=== PATIENT | female | born 1960 | race Caucasian/White ===

== ENCOUNTER 2018-02-08 21:51 | Emergency (ER) | payer SELFPAY ==
[~2018-02-08] VITALS: Ht 162.6 cm; Wt 88.0 kg
[~2018-02-08 21:51] MED LIST: ASPIRIN81 MG PO; HUMULIN R100 UNIT/2; LANTUS 3ML100 UNITS/; LYRICA75 MG PO; ULTRAM 50MG50 MG PO
[2018-02-08] MEDS ORDERED: ONDANSETRON HCL INJ 2 MG/ML VIAL IV ONE (22:30)
[2018-02-08] MEDS ORDERED: KETOROLAC TROMETHAMINE 30 MG/ML VIAL IV ONE (22:30)
[2018-02-08] MEDS ORDERED: PROMETHAZINE HCL (IM) 25 MG/ML VIAL IM ONE (23:15)
[2018-02-08] MEDS ORDERED: SODIUM CHLORIDE 0.9% 1000ML 1,000 ML ONE (23:15)
[2018-02-08] MEDS ORDERED: MORPHINE SULFATE 4 MG/ML SYR IV ONE (23:15)
[2018-02-08] MEDS ORDERED: ZOFRAN ODT4 MG SL (23:57)
[2018-02-08] MEDS ORDERED: TYLENOL WITH C1 EACH PO (23:57)
[2018-02-09 01:20] VITALS: BP 138/72
== END 2018-02-09 00:07 | disposition home or self-care (01) ==
LOC: FSED 21:51
DX: R11.2 Nausea with vomiting, unspecified (principal); R19.7 Diarrhea, unspecified; B34.9 Viral infection, unspecified; M54.5 Low back pain
CPT/HCPCS: 74176; 80053; 81003; 82553; 84484; 85025; 96360; 96365; 96374; 96375; 99284; J7030

== ENCOUNTER 2018-08-03 13:02 | Emergency (ER) | payer SELFPAY ==
[~2018-08-03] VITALS: Ht 162.6 cm; Wt 88.0 kg
[~2018-08-03 13:02] MED LIST changes: +TYLENOL WITH C1 EACH PO; +ZOFRAN ODT4 MG SL
[2018-08-03] MEDS ORDERED: AMIODARONE HCL200 MG PO (14:01)
[2018-08-03] MEDS ORDERED: GABAPENTIN300 MG PO (14:01)
[2018-08-03] MEDS ORDERED: ATORVASTATIN CA20 MG PO (14:01)
[2018-08-03] MEDS ORDERED: SERTRALINE HCL50 MG PO (14:01)
[2018-08-03] MEDS ORDERED: LISINOPRIL10 MG PO (14:01)
[2018-08-03] MEDS ORDERED: DOXYCYCLINE HY100 MG PO (14:01)
[2018-08-03] MEDS ORDERED: LASIX40 MG PO (14:01)
[2018-08-03] MEDS ORDERED: GLIMEPIRIDE2 MG PO (14:01)
--- NOTE | 2018-08-03 14:10 | Diagnostic Imaging Report ---
EXAMINATION: PA and lateral views of the chest. COMPARISON: Series 02/03/2015 CLINICAL HISTORY: Right-sided chest pain after vomiting DISCUSSION: Lines/tubes: None. Lungs: Lungs are well-inflated. Stable bilateral lower lobe linear opacities, likely reflecting scarring. A linear opacity in the left mid lung may represent subsegmental scarring. No consolidation or pulmonary edema. Pleura: There is no pleural effusion or pneumothorax. Heart and mediastinum: Enlarged cardiac silhouette. Pulmonary vasculature is normal. CABG changes Bones and soft tissues: The visualized bony structures show no acute, displaced fracture or dislocation. Degenerative changes in the thoracic spine. Midline sternotomy wires. IMPRESSION: Bilateral lower lobe scarring. Left midlung subsegmental atelectasis versus scarring. No consolidation or effusion. 2. Enlarged cardiac silhouette. Signed by: Dr. Alex Hopson M.D. on 08/03/2018 2:06 PM
[2018-08-03] MEDS ORDERED: ACETAMINOPHEN 325 MG TAB PO ONE (14:30)
[2018-08-03 16:15] VITALS: BP 158/80
== END 2018-08-03 14:44 | disposition home or self-care (01) ==
LOC: FSED 13:02
DX: R07.89 Other chest pain (principal); I25.811 Atherosclerosis of native coronary artery of transplanted heart without angina pectoris; E11.9 Type 2 diabetes mellitus without complications; Z95.1 Presence of aortocoronary bypass graft
CPT/HCPCS: 71046; 99283